=== PATIENT | female | born 1980 | race Two or more races ===

== ENCOUNTER → 2017-02-26 | Outpatient (CLI) | payer OTHER ==
[~2017-02-26] MED LIST: COLA100C3 PO; IBUP-1114 PO; IBUP600T26 PO; OXYC1TAB23 PO; PRENTAB9 PO; ZOFR20TA PO
--- NOTE | 2017-02-26 19:58 | REP ---
Left wrist four views: Mineralization and joint spaces are normal. No fracture or dislocation. There are no calcifications or foreign bodies. Impression: Negative left wrist. Signed by Theo Rose MD 02/26/2017 07:50 P
== END ==
LOC: M LRY 19:30
PROVIDERS: ATTEND Physician Assistant
DX: M25.532 Pain in left wrist (principal)

== ENCOUNTER → 2017-07-02 | Outpatient (REF) | payer OTHER ==
[~2017-07-02] MED LIST changes: -COLA100C3 PO; +COLA100C5 PO; +IBUP-1022 PO; -IBUP600T26 PO
[2017-07-02 13:31] LABS: BASO # 0.1 10^3/uL (0.0-0.2); BASO % 0.7 % (0.0-1.0); EOS # 0.3 10^3/uL (0.0-0.50); EOS % 3.7 % (0.0-3.0); IMMATURE GRANULOCYTE % 0.3 % (0-0); LYMPH # 2.4 10^3/uL (1.5-4.5); MEAN CORPUSCULAR HEMOGLOBIN 28.4 pg (27.0-33.0); MEAN CORPUSCULAR HGB CONC 32.8 g/dl (32.0-36.5); MEAN CORPUSCULAR VOLUME 86.6 fl (80.0-96.0); MONO # 0.5 10^3/uL (0.0-0.8); MONO % 6.5 % (0.0-5.0); NEUTROPHILS # 3.7 10^3/uL (1.8-7.7); NEUTROPHILS % 53.8 % (36.0-66.0); PLATELET COUNT, AUTOMATED 241 10^3/uL (150-450); RED CELL DISTRIBUTION WIDTH 13.3 % (11.5-14.5)
[2017-07-02 13:48] LABS: FOLATE > 24.0 NG/ML (>5.4); VITAMIN B12 LEVEL 630 PG/ML (247-911)
[2017-07-02 14:12] LABS: ERYTHROCYTE SEDIMENTATION RATE 3 mm/hr (0-20)
[2017-07-02 14:15] LABS: ALBUMIN 3.9 GM/DL (3.2-5.2); ALBUMIN/GLOBULIN RATIO 1.18 (1.00-1.93); ALKALINE PHOSPHATASE 56 U/L (45-117); ALT/SGPT 21 U/L (12-78); ANION GAP 8 MEQ/L (8-16); AST/SGOT 13 U/L (15-37); BILIRUBIN,TOTAL 0.4 MG/DL (0.2-1.0); BLOOD UREA NITROGEN 18 MG/DL (7-18); CALCIUM LEVEL 8.7 MG/DL (8.5-10.1); CARBON DIOXIDE LEVEL 24 MEQ/L (21-32); CHLORIDE LEVEL 110 MEQ/L (98-107); CREATININE FOR GFR 0.72 MG/DL (0.55-1.02); GLOMERULAR FILTRATION RATE > 60.0 (>60); GLUCOSE, FASTING 86 MG/DL (70-105); POTASSIUM SERUM 4.3 MEQ/L (3.5-5.1); SODIUM LEVEL 142 MEQ/L (136-145); TOTAL PROTEIN 7.2 GM/DL (6.4-8.2)
[2017-07-06 10:39] LABS: ALBUMIN 4.29 GM/DL (3.29-5.55); ALBUMIN % 59.6 % (55.8-66.1); GAMMA GLOBULIN % 15.1 % (11.1-18.8)
[2017-07-07 08:06] LABS: SJOGREN'S ANTI SS-A <0.2 AI (0.0-0.9); SJOGREN'S ANTI SS-B 0.3 AI (0.0-0.9); VITAMIN E LEVEL 9.8 mg/L (5.3-16.8)
== END ==
LOC: M LABNEURO 10:06
PROVIDERS: ATTEND Psychiatry & Neurology Neurology
DX: G62.9 Polyneuropathy, unspecified (principal)